=== PATIENT | female | born 1980 ===

== ENCOUNTER 2020-09-04 22:24 | Emergency (ER) | payer SELFPAY ==
[~2020-09-04] VITALS: Ht 162.6 cm; Wt 84.8 kg
[2020-09-04 22:50] VITALS: BP 129/69
--- NOTE | 2020-09-05 00:11 | NUR ---
NO NURSING INTERVENTIONS ORDERED BY DR. CALVERT.
--- NOTE | 2020-09-05 00:12 | NUR ---
Patient discharged with v/s stable. Written and verbal after care instructions given and explained. Patient alert, oriented and verbalized understanding of instructions. Ambulatory with steady gait. All questions addressed prior to discharge. ID band removed. Patient advised to follow up with PMD. Rx of naprosyn, acetaminophen,guaiatussin given. Patient educated on indication of medication including possible reaction and side effects. Opportunity to ask questions provided and answered.
== END 2020-09-05 00:12 | disposition home or self-care (01) ==
LOC: MED 22:24
DX: U07.1 COVID-19 (principal); J20.9 Acute bronchitis, unspecified
CPT/HCPCS: 71045; 99283